=== PATIENT | female | born 1995 | race African-American/Black ===

== ENCOUNTER 2024-01-30 01:27 | Emergency (ER) | payer SELFPAY ==
[2024-01-30 01:33] VITALS: BP 143/78; PULSE 78; RESP 16; TEMP 36.7; O2SAT 100; BMI 21.8
[2024-01-30 01:55] LABS: MANUAL DIFF FLAG NO
[2024-01-30 01:57] LABS: Basophils Absolute Auto 0.1 X10*3/uL (0.0-0.2); Basophils Percent Auto 0.5 % (0-2); Eosinophils Absolute Auto 0.1 X10*3/uL (0.0-0.4); Hematocrit 38.8 % (37.0-47.0); Hemoglobin 12.7 g/dl (12.0-16.0); Imm Gran Abs Auto 0.02 X10*3/uL (0.00-0.03); Imm Gran Pct Auto 0.2 % (0.0-0.4); Lymphocytes Absolute Auto 4.7 X10*3/uL (1.2-4.9); Lymphocytes Percent Auto 47.9 % (20-40); Mean Corpuscular HGB Conc 32.7 g/dl (31.0-35.0); Mean Corpuscular Hemoglobin 29.1 pg (27.0-33.0); Mean Corpuscular Volume 88.8 fL (80.0-98.0); Mean Platelet Volume 10.1 fL (9.4-12.3); Monocytes Absolute Auto 0.8 X10*3/uL (0.1-1.2); Monocytes Percent Auto 7.7 % (2-11); Neutrophils Absolute Auto 4.2 x10*3/uL (2.0-8.3); Neutrophils Percent Auto 42.7 % (45-73); Platelet Count 363 X10*3/uL (160-400); Red Blood Count 4.37 X10*6/uL (4.20-5.50); Red Cell Distribution Width 14.6 % (11.0-16.0); White Blood Count 9.9 X10*3/uL (4.8-10.8)
[2024-01-30 02:12] LABS: Alanine Aminotransferase 19 U/L (0-31); Albumin Level 4.3 g/dL (3.5-5.0); Alkaline Phosphatase 71 U/L (39-117); Anion Gap 12 (12-20); Aspartate Amino Transferase 20 U/L (5-31); Bilirubin Total 0.4 mg/dL (0.0-1.0); Blood Urea Nitrogen 12 mg/dL (9-16); Calcium 9.5 mg/dL (8.4-10.2); Carbon Dioxide 24 mmol/L (22-29); Chloride 107 mmol/L (96-108); Creatinine Clr Calc Pharmacy 62.9; Estimated Glomerular Filt Rate 59; Glucose Random 85 mg/dL (60-115); Lipase 23 U/L (8-78); Potassium 3.8 mmol/L (3.3-5.1); Sodium 139 mmol/L (135-145); Total Protein 7.1 g/dL (6.5-8.0)
[2024-01-30 02:22] LABS: Appearance Urine Clear; Color Urine Yellow; Glucose Urine UA Negative (Negative); Leukocyte Esterase Urine Negative (Negative); Nitrite Urine Negative (Negative); PH 8.5 (5.0-9.0); Specific Gravity - Urine 1.015 (1.005-1.025); Urine Blood Negative (Negative); Urine Ketones Negative (Negative); Urine Protein Negative (Neg-Trace)
[2024-01-30 02:23] LABS: UPreg QC Valid YES; Urine Pregnancy NEGATIVE (NEGATIVE)
--- NOTE | 2024-01-30 02:53 | ED.ABDPAIN ---
HPI - Abdominal Pain General Chief Complaint: Abdominal Pain Stated Complaint: Cramping Time Seen by Provider: 01/30/24 02:25 Source: patient Mode of arrival: ambulatory Limitations: no limitations History of Present Illness ED Provider: bhaskar FLORES narrative: Patient patient had last menstrual period 1 week ago comes here with lower abdominal cramps worried about whether she is unknown no vaginal bleed had normal period Last week vomited only twice today no nausea at this time Related Data Previous Rx's ?Medication ?Instructions ?Recorded ondansetron 4 mg disintegrating 4 mg PO Q6-8H PRN nausea and 01/30/24 tablet vomiting #4 tabs Allergies Allergy/AdvReac Type Severity Reaction Status Date / Time No Known Allergies Allergy Verified 01/30/24 01:34 Review of Systems Review of Systems Yes all other systems are reviewed and are negative [facility] Social History Social History Advance Directives: No Advance Directives Information Provided: No Do you have a plan to hurt others: No Plan Physical Exam ED Vital Signs: Vital Signs - 24 hr 01/30/24 01:33 Temperature 98.1 F Pulse Rate 78 Respiratory Rate 16 Blood Pressure 143/78 H Pulse Oximetry 100 Oxygen Delivery Method Room Air BMI result Body Mass Index 21.8 Appearance: Alert. Oriented X3. No acute distress. ENT: Pharynx normal. Oral Mucosa moist Neck: Normal inspection. Neck supple. CVS: Normal heart rate and rhythm. Pulses normal. Respiratory: No respiratory distress. Equal air entry bilateral, no wheezing/rales/rhonchi Abdomen: Soft and nontender. Bowel sounds are present, no mass palpable, no CVA tenderness Skin: Skin warm and dry. Normal skin color. Normal skin turgor. Extremities: No lower extremity edema. No calf tenderness Neuro: Oriented X 3. No motor deficit. No sensory deficit.No cerebellar signs , cranial nerves II-XII intact Medical Decision Making Lab Data 01/30/24 01:51 01/30/24 01:51 Labs: Lab Results 01/30/24 01/30/24 Range/Units 01:51 02:12 WBC 9.9 (4.8-10.8) X10*3/uL RBC 4.37 (4.20-5.50) X10*6/uL Hgb 12.7 (12.0-16.0) g/dl Hct 38.8 (37.0-47.0) % MCV 88.8 (80.0-98.0) fL MCH 29.1 (27.0-33.0) pg MCHC 32.7 (31.0-35.0) g/dl RDW 14.6 (11.0-16.0) % Plt Count 363 (160-400) X10*3/uL MPV 10.1 (9.4-12.3) fL Immature Gran % (Auto) 0.2 (0.0-0.4) % Neut % (Auto) 42.7 L (45-73) % Lymph % (Auto) 47.9 H (20-40) % [place] % (Auto) 7.7 (2-11) % Eos % (Auto) 1.0 (0-4) % Baso % (Auto) 0.5 (0-2) % Lymph # (Auto) 4.7 (1.2-4.9) X10*3/uL [place] # (Auto) 0.8 (0.1-1.2) X10*3/uL Eos # (Auto) 0.1 (0.0-0.4) X10*3/uL Baso # (Auto) 0.1 (0.0-0.2) X10*3/uL Abs Immat Gran (auto) 0.02 (0.00-0.03) X10*3/uL Absolute Neuts (auto) 4.2 (2.0-8.3) x10*3/uL Absolute Nucleated RBC 0.000 (0.0-0.012) X10*3/uL Nucleated RBC % (auto) 0.0 (0.0-0.2) /100WBC Sodium 139 (135-145) mmol/L Potassium 3.8 (3.3-5.1) mmol/L Chloride 107 (96-108) mmol/L Carbon Dioxide 24 (22-29) mmol/L Anion Gap 12 (12-20) BUN 12 (9-16) mg/dL Creatinine 1.12 (0.5-1.4) mg/dL Estim Creat Clear Calc 62.9 Estimated GFR 59 Random Glucose 85 (60-115) mg/dL Calcium 9.5 (8.4-10.2) mg/dL Total Bilirubin 0.4 (0.0-1.0) mg/dL AST 20 (5-31) U/L ALT 19 (0-31) U/L Alkaline Phosphatase 71 (39-117) U/L Total Protein 7.1 (6.5-8.0) g/dL Albumin 4.3 (3.5-5.0) g/dL Lipase 23 (8-78) U/L Urine Color Yellow Urine Appearance Clear Urine pH 8.5 (5.0-9.0) Ur Specific [place] 1.015 (1.005-1.025) Urine Protein Negative (Neg-Trace) mg/dL Urine Glucose (UA) Negative (Negative) mg/dL Urine Ketones Negative (Negative) mg/dL Urine Blood Negative (Negative) Urine Nitrite Negative (Negative) Ur Leukocyte Esterase Negative (Negative) Urine Test NEGATIVE (NEGATIVE) Discharge Plan Discharge Clinical Impression: Abdominal pain Patient Disposition: Home, Self-Care Instructions: Abdominal Pain (ED) Additional Instructions: Drink plenty of fluids Medicine for nausea as prescribed Your test is negative Prescriptions: New ondansetron 4 mg tablet,disintegrating 4 mg PO Q6-8H PRN (Reason: nausea and vomiting) Qty: 4 0RF Print Language: Hebrew
[2024-01-30 03:00] VITALS: BP 143/78; PULSE 78; RESP 16; TEMP 36.7; O2SAT 100
== END 2024-01-30 03:01 | disposition home or self-care (01) ==
PROVIDERS: Emergency Provider Internal Medicine
DX: R25.2 Cramp and spasm (principal); R10.9 Unspecified abdominal pain; Z79.899 Other long term (current) drug therapy
CPT/HCPCS: 36415; 80053; 81003; 81025; 83690; 85025; 99282; 99283

== ENCOUNTER 2025-02-26 04:01 | Emergency (ER) | payer OTHER, SELFPAY ==
[2025-02-26 04:10] VITALS: BP 122/71; PULSE 107; RESP 16; TEMP 36.9; O2SAT 97; BMI 23.5
--- OUTSIDE RECORDS SUMMARY | 2025-02-26 05:02 | XMS_ITS | Clinical Summary ---
Author Organization [facility] Address [address] [place] [phone] Phone Care Team Providers Care Police Detention Attendant Name Role Phone Physician, No Pcp Primary Care Provider Unavaila ble Allergies No known active allergies Medications ibuprofen (ADVIL,MOTRIN) 600 mg tablet TAKE 1 TABLET BY MOUTH 3 TIMES A DAY NEEDED FOR MILD PAIN MAX OF 2400MG/DAY Active ondansetron ODT (ZOFRAN-ODT) 4 mg disintegrating tablet DISSOLVE 1 TABLET BY MOUTH EVERY 6-8 HOURS NEEDED FOR NAUSEA AND VOMITING Active Active Problems No known active problems Surgical History Surgery Date Site/Laterality Comments OTHER SURGICAL HISTORY PROCEDURE: DENIES PREVIOUS SURGERY Medical History Medical History Date Comments History of eczema DX:History of eczema Family History Medical History Relation Name Comments No Known Problems Brother x5 No Known Problems Father No Known Problems Maternal Grandfather No Known Problems Maternal Grandmother No Known Problems Mother No Known Problems Paternal Grandfather No Known Problems Paternal Grandmother No Known Problems Sister 1 No Known Problems Sister 2 Relation Name Status Comments Brother x5 Alive Father Alive Maternal Grandfather Alive Maternal Grandmother Alive Mother Alive Paternal Grandfather Alive Paternal Grandmother Alive Sister 1 Alive Sister 2 Alive Social History Tobacco Use Types Packs/Day Years Used Date Smoking Tobacco: Never Smokeless Tobacco: Never Alcohol Use Standard Drinks/Week Comments Not Currently 0 (1 standard drink = 0.6 oz pur e alcohol) Comments No Sex and Gender Information Value Date Recorded Sex Assigned at Not on file Legal Sex Female 9:58 AM EST Gender Identity Not on file Sexual Orientation Not on file Occupation Industry Job Start Date Job End Date completd medical sales representative school , currtnly externing at [employer] Not on file Not on file Not on file Obstetrics History Para Term AB IAB SAB Ectopic Multiple Livin g Live Births 0 0 0 0 0 0 0 0 Last Filed Vital Signs Vital Sign Reading Time Taken Comments Blood Pressure 114/78 08/25/2024 3:38 PM EDT Pulse 73 08/25/2024 3:38 PM EDT Temperature - - Respiratory Rate - - Oxygen Saturation - - Inhaled Oxygen Concentration - - Weight 61.7 kg (136 lb) 08/25/2024 3:38 PM EDT Height 160.7 cm (5' 3.25 ) 08/25/2024 3:38 PM ED T Body Mass Index 23.9 08/25/2024 3:38 PM EDT Plan of Treatment Health Maintenance Due Date Last Done Comments DTaP,Tdap,and Td Vaccines (1 - Tdap) 2016 Hepatitis B Vaccines (1 of 3 - 19+ 3-dose series) 2016 Social Influencers of Health Screening 03/10/2022 Depression Screening 04/12/2024 HPV Vaccines (1 - 3-dose SCDM series) 2024 COVID-19 Vaccine ( - 2024- season) 2024 Influenza Vaccine (#1) 2024 Cervical Cancer Screening: Pap Smear 08/26/2027 08/25/2024, 08/13/2020, 08/13/2020, Additional history exists RSV Immunization Adult Patients (1 - 1-dose 75+ series) 2072 HIV Screening Completed 03/06/2022 Hepatitis C Screening Completed 03/06/2022 Gonorrhea/Chlamydia Screening Discontinued 08/25/2024, 04/02/2023 HIB Vaccines Aged Out No longer eligi ble based on patient's age to complete this topic Hepatitis A Vaccines Aged Out No long er eligible based on patient's age to complete this topic IPV Vaccines Aged Out No longer eligi ble based on patient's age to complete this topic MMR Vaccines Aged Out No longer eligi ble based on patient's age to complete this topic Meningococcal ACWY Vaccine Aged Out N o longer eligible based on patient's age to complete this topic Meningococcal B Vaccine Aged Out No l onger eligible based on patient's age to complete this topic Pneumococcal Vaccine: Pediatrics (0 to 5 Years) and At-Risk Patients (6 to 49 Years) Aged Out No longer eligible based on patient's age to complete this topic RSV Immunization Patients Under 20 months Aged Out No longer eligible based on patient's age to complete this topic Varicella Vaccines Aged Out No longer eligible based on patient's age to complete this topic Procedures Procedure Name Priority Date/Time Associated Diagnosis Comments PAP SMEAR Routine 08/25/2024 3:56 PM EDT Encounter for well woman exam with routine gynecological exam Screening for cervical cancer CHLAMYDIA TRACHOMATIS AND NEISSERIA GONORRHOEAE BY TMA, THINPREP Routine 08/25/2024 3:56 PM EDT Encounter for well woman exam with routine gynecological exam Screening for cervical cancer HEPATITIS C SCREENING Routine 03/06/2022 HIV SCREENING Routine 03/06/2022 from Last 3 Months or Most Recently Relevant to Health Maintenance Results * Chlamydia trachomatis and neisseria gonorrhoeae by tma, thinprep (08/25/2024 3:56 PM EDT) N. gonorrhoeae, RNA Probe Negative Negative LAB MICROBIOLOGY METHOD 08/28/2024 1:08 PM EDT [facility] Chlamydia, RNA Probe Negative Negative LAB MICROBIOLOGY METHOD 08/28/2024 1:08 PM EDT [facility] Brushing/Spatula Cervix uteri structure / Unknown 08/25/2024 3:56 PM EDT 08/28/2024 5:37 AM EDT Mayela Powell CNM LAB CYTOLOGY ORDERABLES Final Result [facility] [address] [place] [address], * Pap smear (08/25/2024 3:56 PM EDT) Interpretation Negative for intraepithelial lesion or malignancy 08/30/2024 9:37 AM EDT [facility] General Categorization Negative 08/30/2024 9:37 AM EDT [facility] Other Findings Shift in keeley suggestive of bacterial vaginosis 08/30/2024 9:37 AM EDT [facility] LMP 08/10/2024 08/30/2024 9:37 AM EDT [facility] Specimen Adequacy Satisfactory for evaluation, endocervical/saez sformation zone component absent 08/30/2024 9:37 AM EDT [facility] Pap Methodology Liquid Based Pap Test 08/30/2024 9:37 AM EDT [facility] Disclaimer The Pap test is a screening test which carries an inherent false negative rate. These test results should be correlated with the patient's clinical findings and history. This Pap test was processed using an automated screening system. Technical cytopathology services provided by [facility], at [address] [place] [address] (CLIA # [id number]/Kannan Waldron MD, Rn Orthopedic.) 08/30/2024 9:37 AM EDT [facility] Console Pap Interpretation Reported 08/30/2024 9:37 AM EDT [facility] Brushing/Spatula Cervix uteri structure / Unknown 08/25/2024 3:56 PM EDT 08/28/2024 5:37 AM EDT Mayela Powell CNM LAB CYTOLOGY ORDERABLES Final Result [facility] [address] [place] [address], * HIV Screening (03/06/2022) HIV Screening abstracted Historical Provider HEALTH MAINTENANCE Final Result * Hepatitis C Screening (03/06/2022) Hepatitis C Screening abstracted Historical Provider HEALTH MAINTENANCE Final Result from Last 3 Months or Most Recently Relevant to Health Maintenance Care Teams Police Detention Attendant Relationship Specialty Start Date End Date Physician, No Pcp PCP - General 06/09/24
--- NOTE | 2025-02-26 05:03 | ED_ITS ---
HPI - Eye Problem General Chief complaint: Eye Problems Stated complaint: pink eye? Time Seen by Provider: 02/26/25 04:58 Source: patient Mode of arrival: ambulatory Limitations: no limitations History of Present Illness ED Provider: Tyson AVELAR HPI Narrative: The patient is a 29-year-old female presenting to the ED for evaluation of conjunctival injection and clear/purulent drainage from the left eye. Patient reports symptoms began Wednesday when she woke with the left eye stuck closed, patient was able to wet the area and eventually open the eye. Since that time patient reports persistent conjunctival erythema with associated itching and clearish discharge. The patient reports blurred vision when discharges excessive, denies vision loss, painful EOMs, fever/chills, periorbital erythema, or recent high-risk activities for foreign body. Related Data Previous Rx's ?Medication ?Instructions ?Recorded ondansetron 4 mg disintegrating 4 mg PO Q6-8H PRN naus ea and 01/30/24 tablet vomiting #4 tabs erythromycin 5 mg/gram (0.5 %) eye 0.5 inch ophthalmic (eye) TID #3.5 02/26/25 ointment grams Allergies Allergy/AdvReac Type Severity Reaction Status Date / Time No Known Allergies Allergy Verified 02/26/25 04:12 Review of Systems Review of Systems: Yes all other systems are reviewed and are negative PMFSH Social History Social History Advance Directives: No Advance Directives Information Provided: No Physical Exam Vital Signs: Vital Signs: Last Vital Signs Temp 98.4 F 02/26/25 04:10 Pulse 107 H 02/26/25 04:10 Resp 16 02/26/25 04:10 BP 122/71 02/26/25 04:10 Pulse Ox 97 02/26/25 04:10 O2 Del Method Room Air 02/26/25 04:10 BMI result Body Mass Index 23.5 CONSTITUTIONAL: The patient appears non-toxic, well nourished and in no acute distress. Vital signs as documented. HEAD: Atraumatic, normocephalic. EYES: EOMs intact and nonpainful, pupils equal and reactive, right eye demonstrates clear conjunctiva, no exudate. Left eye demonstrates significant conjunctival injection with mild purulent material on the base of the eyelashes and clear tearing. ENT: Nares patent, no discharge. Airway patent, no audible stridor, visible mucosa is pink and moist without noted lesions. NECK: trachea is midline, no obvious masses or gross abnormalities. CHEST: Symmetric movement, normal appearance. LUNGS: Non-labored work of breathing. CARDIAC: No evidence of hypoperfusion. ABDOMEN: Nondistended, no obvious injury. : Deferred. EXTREMITIES: Moves all extremities spontaneously without reported pain. No obvious injury or deformity noted. NEURO: Alert and oriented x3, CN II-XII appear grossly intact. Cerebellar Functioning grossly intact. Speech clear and appropriate. SKIN: Warm, dry, color appropriate. No rashes or lesions noted. Medical Decision Making Medical Decision Making MDM Narrative: 5:11 AM 02/26/2025 (Nandini AVELAR): The patient is a 29-year-old female presenting to the ED for evaluation of conjunctival injection and clear/purulent drainage from the left eye. Patient reports symptoms began Wednesday when she woke with the left eye stuck closed, patient was able to wet the area and eventually open the eye. Since that time patient reports persistent conjunctival erythema with associated itching and clearish discharge. The patient reports blurred vision when discharges excessive, denies vision loss, painful EOMs, fever/chills, periorbital erythema, or recent high-risk activities for foreign body. On exam patient has no visible foreign bodies, however there is diffuse conjunctival injection of the left eye with clear tearing. P resentation consistent with a bacterial conjunctivitis. Patient will be treated with erythromycin ointment and discharged to follow up with PCP. Discharge Plan Discharge Clinical Impression: Bacterial conjunctivitis Patient Disposition: Home, Self-Care Instructions: Conjunctivitis (ED) Additional Instructions: Thank you for choosing [facility]'s Emergency Department for your care today. Thankfully your eye exam today is not concerning for any acute emergency. At this time there is no indication for admission to the hospital or continued ED observation, and it is safe to discharge you home. Your presentation and exam are consistent with acute bacterial conjunctivitis. You should take alternating (staggered) doses of ibuprofen 600mg and Tylenol 1000mg every 4 hours as needed for any pain. Please apply erythromycin ointment to only your affected left eye as directed until finished. Please stay well hydrated and get plenty of rest. Please follow up with your primary care physician for re-evaluation, additional management of your symptoms, and continued preventative care. If you do not have a primary care physician, please call the [facility] at [phone] to establish a new primary care physician. While waiting to establish your new primary care physician, you can call our Walk[facility]in [facility] at [phone] for non-emergency needs. Please return to the emergency department if you develop a severe or sudden change in your symptoms, a fever over 100.4 that does not improve with Tylenol or Ibuprofen, recurrent vomiting, or any other new or worsening symptoms or concerns. Prescriptions: New erythromycin 5 mg/gram (0.5 %) ointment 0.5 inch ophthalmic (eye) TID Qty: 3.5 0RF No Action ondansetron 4 mg tablet,disintegrating 4 mg PO Q6-8H PRN (Reason: nausea and vomiting) Qty: 4 0RF Stand Alone Forms: Work/School Release Print Language: Hungarian
[2025-02-26] MEDS: Erythromycin Base 0.5% Oph Oin 1 GM TUBE 1 CM EYE-LEFT (05:20)
[2025-02-26 05:25] VITALS: BP 117/58; PULSE 87; RESP 16; TEMP 36.8; O2SAT 97
[2025-02-26 05:31] VITALS: BP 117/58; PULSE 87; RESP 16; TEMP 36.8; O2SAT 97
== END 2025-02-26 05:31 | disposition home or self-care (01) ==
PROVIDERS: Emergency Provider Emergency Medicine
DX: H10.89 Other conjunctivitis (principal)
CPT/HCPCS: 99283; 99284